=== PATIENT | female | born 1990 | race Caucasian/White ===

== ENCOUNTER 2023-01-04 12:18 | Inpatient (IN) ==
[2023-01-04] MEDS ORDERED: OXYTOCIN 30 UNITS/500 ML BAG IV PRN ×3 (12:24→23:23)
[2023-01-04] MEDS ORDERED: LIDOCAINE 1% LOCAL 20 ML VIAL INFIL PRN (12:24)
[2023-01-04] MEDS ORDERED: PENICILLIN G POTASSIUM 6 MU in DEXTROSE 5% 250 ML IV ONE (12:30)
[2023-01-04] MEDS ORDERED: BETAMETH SOD PHOS/ACETATE IA 6 MG/ML ONE (12:51)
[2023-01-04] MEDS ORDERED: BETAMETH SOD PHOS/ACETATE IA 6 MG/ML IM STA (12:51)
--- NOTE | 2023-01-04 12:58 | History & Physical Report ---
Date of Service January 04, 2023 Assessment & Plan (1) 36 weeks gestation of : (2) PROM (premature rupture of membranes): (3) Gestational diabetes: Plan admit, iv, labs. initial bp elevated, if remains elevated will need to draw additional labs. she did have normal bp in office within last 1-2hr. pitocin induction of labor. pcn for unknown gbs status. gbs obtained, send urine studies, check wbc, betamethasone rec due to ega. reviewed prom and rec to proceed with induction of labor and pt and partner agree. deny questions. fhts categ 1. History of Present Illness Chief Complaint: prom Primary Care Provider: NO PCP 32yo at 36 1/7 wks ega presents to L&D from office with gross rupture, without labor. Patient denies bleeding. Leaking began at 0630am. She was seen in office and gross srom. +FM. No ctx. Had prior 38wk . GDM this , controlled with diet. Unknown gbs status. PNC c/b GDM OBH: x 1 GY[facility]: nl paps, h/o CT--not recent. Allergies Allergy/AdvReac Type Severity Reaction Status Date / Time No Known Allergies Allergy Verified 01/04/23 11:55 Home Medications Medication Instructions Recorded Confirmed Type lactobacillus combination no.8 PO 04/04/20 01/04/23 History [Adult Probiotic] prenat.vits,bronson,[id number] 1 tab PO DAILY 04/02/22 01/04/23 History doxylamine succinate [Unisom PO 06/13/22 01/04/23 History (doxylamine)] acetone (urine) test (Ketone Urine #50 ea 07/09/22 01/04/23 Rx Test strips) blood sugar diagnostic (OneTouch #150 ea 07/09/22 01/04/23 Rx Verio test strips) blood-glucose meter (OneTouch #1 ea 07/09/22 01/04/23 Rx Verio Reflect Meter) lancets 33 gauge (OneTouch Delica #150 ea 07/09/22 01/04/23 Rx Lancets) breast pump #1 ea 11/26/22 01/04/23 Rx breast pump #1 ea 12/24/22 01/04/23 Rx Patient History Medical History (Updated 01/04/23 @ 12:56 by Mikala Santizo MD, FACOG) 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 Gestational diabetes History of anemia History of chicken pox Hx of ovarian cyst Surgical History S/P wisdom tooth extraction Family History (Updated 06/13/22 @ 13:07 by Rajni Osullivan) Father Hypertension Sister Twin Denies family history of Ovarian cancer Breast cancer Colorectal cancer Social History (Updated 06/13/22 @ 13:09 by Rajni Osullivan) Smoking Status: Never smoker marital status: marital status details: Chidi Marshall(32) [phone] Current Living Situation: Spouse and Family Current Living Situation Comment: lives with spouse, son, dog, cats-spouse changing litter current occupational status: employed current occupation: [employer] Review of Systems as per Subjective / HPI Physical Exam Constitutional: WD/WN, vitals as above Respiratory: normal respiratory effort, lungs clear to auscultation Cardiovascular: Rate/Rhythm: regular rate and regular rhythm Gastrointestinal (Abdomen): soft gravid nt efw 6-7# Musculoskeletal: no edema nontender calves Neurologic: grossly normal Psychiatric: A+Ox3, euthymic affect Genitourinary: Manual OB Exam: + cervical dilation 2 cm, + cervical effacement 60%, + station -2 and + amniotic fluid (gross srom, forebag arom) clear OB Exam Monitor Tracing: + external FHT monitor used, + external uterine monitor used (irreg), + category I and + normal FHT variability Results & Data Vital Signs (Past 12 Hours) Vital Signs Pulse BP 01/04/23 12:49 75 169/93 H 01/04/23 12:32 82 162/99 H Coding Level of Care Code None Diagnoses 36 weeks gestation of Z3A.36 PROM (premature rupture of membranes) O42.90 Gestational diabetes O24.419
[2023-01-04] MEDS: LACTATED RINGER'S 1,000 ML IV PRN ×2 (13:00→22:01)
[2023-01-04 13:06] LABS: Hematocrit (blood only) 36.5 % (37.0-47.0); Hemoglobin 12.6 g/dl (12.0-16.0); Mean Corpuscular Hemoglobin 30.8 pg (25.0-34.0); Mean Corpuscular Hgb Conc 34.5 g/dL (32.0-36.0); Mean Corpuscular Volume 89.2 fL (80.0-100.0); Mean Platelet Volume 10.5 fL (9.4-12.4); Platelet Count 221 K/uL (130-400); RDW Coefficient of Variation 12.4 % (11.5-14.5); RDW Standard Deviation 40.4 fL (36.4-46.3); Red Blood Count 4.09 M/uL (4.20-5.40); White Blood Count 11.95 K/ul (4.8-10.8)
[2023-01-04 13:18] LABS: Appearance Urine Clear (Clear); Bacteria Urine Automated Negative (Negative); Bilirubin Urine Negative (Negative); Blood Urine Negative (Negative); Color Urine Yellow; Epithelial Cell Urine Auto >30 /lpf (0-5); Glucose Urine UA Negative (Negative); Ketones Urine 1+ (Negative); Leukocyte Esterase Urine Negative (Negative); Nitrite Urine Negative (Negative); Protein Urine Trace (Negative); RBC Urine Automated 0-4 /hpf (0-4); Urobilinogen Urine Negative (Negative)
[2023-01-04] MEDS: PENICILLIN G POTASSIUM 3 MU in DEXTROSE 5% 100 ML IV PRN ×2 (17:33→22:26)
[2023-01-04 17:39] LABS: Albumin Level 3.4 gm/dl (3.4-5.0); BUN Creatinine Ratio 12.5 (10-20); Bilirubin,Total 0.4 mg/dl (0.2-1.0); Calcium 8.8 mg/dl (8.6-10.3); Creatinine Clr Calc Pharmacy 146.1 ml/min; Est GFR (African American) 138.8 ml/min; Est GFR (Non-African American) 119.7 ml/min; Globulin 3.3 gm/dl (2.5-4.0); Total Protein 6.7 gm/dl (6.0-8.3)
--- NOTE | 2023-01-04 18:44 | Labor Progress Brief Note ---
Date of Service January 04, 2023 Subjective ctx stronger, denies hung or visual change. aware of lab results and bp and dx gest htn Assessment & Plan (1) 36 weeks gestation of : (2) PROM (premature rupture of membranes): Plan: c/w pit to keep labor pattern. good cx change. (3) Gestational hypertension: Plan: urine prot/cr ratio pending. ua was only trace protein. dx reviewed with pt. Physical Exam Constitutional: WD/WN, vitals as above Genitourinary: Manual OB Exam: + cervical dilation 3 cm, + cervical effacement (75%) and + station -2 OB Exam Monitor Tracing: + external FHT monitor used, + external uterine monitor used (q3-3.5 pit at 7), + category I and + normal FHT variability Results & Data Vital Signs (Past 12 Hours) Vital Signs Temp Pulse Resp BP 01/04/23 13:11 98.2 F 72 18 156/84 H 01/04/23 18:33 71 01/04/23 18:33 150/86 H 01/04/23 18:19 65 01/04/23 18:19 154/86 H 01/04/23 18:08 79 01/04/23 18:08 160/82 H 01/04/23 17:48 70 01/04/23 17:48 150/86 H 01/04/23 17:33 66 01/04/23 17:33 144/86 H 01/04/23 16:34 98.8 F 01/04/23 14:30 18 01/04/23 14:30 98.2 F 18 01/04/23 14:30 98.2 F 01/04/23 17:18 86 01/04/23 17:18 152/93 H 01/04/23 17:04 74 01/04/23 17:04 147/88 H 01/04/23 16:49 73 01/04/23 16:49 150/80 H 01/04/23 16:34 75 01/04/23 16:34 166/96 H 01/04/23 16:19 69 01/04/23 16:19 162/95 H 01/04/23 16:04 73 01/04/23 16:04 148/75 H 01/04/23 15:48 71 01/04/23 15:48 148/81 H 01/04/23 15:34 71 01/04/23 15:34 147/77 H 01/04/23 15:19 67 01/04/23 15:19 172/85 H 01/04/23 15:04 75 01/04/23 15:04 140/73 01/04/23 14:48 71 01/04/23 14:48 155/86 H 01/04/23 14:33 75 01/04/23 14:33 156/95 H 01/04/23 14:18 73 01/04/23 14:18 160/95 H 01/04/23 14:04 75 01/04/23 14:04 167/92 H 01/04/23 13:49 77 01/04/23 13:49 171/106 H 01/04/23 13:33 72 01/04/23 13:33 156/84 H 01/04/23 13:20 73 01/04/23 13:20 151/92 H 01/04/23 13:04 79 131/87 01/04/23 12:49 75 169/93 H 01/04/23 12:32 98.2 F 82 162/99 H Coding Level of Care Code None Diagnoses 36 weeks gestation of Z3A.36 PROM (premature rupture of membranes) O42.90 Gestational hypertension O13.9
[2023-01-04 20:05] LABS: Creatinine Urine Random 120.1 mg/dl; Protein Creatinine Ratio Urine 0.2 (0-0.2)
[2023-01-04] MEDS ORDERED: fentaNYL citrate PF 100 MCG/2 ML VIAL ONE (22:36)
[2023-01-04] MEDS ORDERED: ePHEDrine sulfate 50 MG/ML AMP ONE (22:36)
[2023-01-04] MEDS ORDERED: LIDOCAINE 2%/EPINEPHRINE 1:200,000 20 ML PF ONE (22:37)
[2023-01-04] MEDS ORDERED: SODIUM CHLORIDE 0.9% PF INJ 10 ML VIAL ONE (22:37)
[2023-01-04] MEDS ORDERED: BUPIVACAINE 0.25% PF 30 ML VIAL ONE (22:37)
[2023-01-04] MEDS ORDERED: fentaNYL 2MCG/ML ROPIVACAINE 1.25MG/ML 100 ML BAG EPI ONE (22:37)
[2023-01-04] MEDS ORDERED: diphenhydrAMINE 50 MG/ML VIAL IV PRN (22:38)
[2023-01-04] MEDS ORDERED: NALOXONE HCL 1 MG in SODIUM CHLORIDE 0.9% 1000ML 1,000 ML IV PRN (22:38)
[2023-01-04] MEDS ORDERED: ONDANSETRON INJ 2 MG/ML 2 ML VIAL IV PRN (22:38)
[2023-01-04] MEDS ORDERED: NALOXONE HCL 0.4 MG/1 ML VIAL/CARP IV PRN (22:38)
[2023-01-04] MEDS ORDERED: fentaNYL 2MCG/ML ROPIVACAINE 1.25MG/ML 100 ML BAG EPI PRN (22:38)
[2023-01-04] MEDS ORDERED: NALBUPHINE HCL INJ 10 MG/ML AMP IV PRN (22:38)
[2023-01-04] MEDS ORDERED: ePHEDrine sulfate 50 MG/ML AMP IV PRN (22:38)
--- NOTE | 2023-01-04 22:39 | Anesthesiology Consultation ---
Date of Service January 04, 2023 Assessment & Plan (1) Encounter for pre-operative examination: Chart Review Chart Review: Patient NOT seen in Pre Admission Testing and Acceptable Risk for Labor Epidural Consults Requested none History Height/Weight Height: 5 ft 4 in Weight: 97.976 kg Allergies Allergy/AdvReac Type Severity Reaction Status Date / Time No Known Allergies Allergy Verified 01/04/23 11:55 Medications Home Medications Medication Instructions Recorded Confirmed Last Taken prenat.vits,bronson,kvl-rhta-rmina 1 tab PO DAILY 04/02/22 01/04/23 01/04/23 acetone (urine) test (Ketone Urine #50 ea 07/09/22 01/04/23 Unknown Test strips) blood sugar diagnostic (OneTouch #150 ea 07/09/22 01/04/23 Unknown Verio test strips) blood-glucose meter (OneTouch #1 ea 07/09/22 01/04/23 Unknown Verio Reflect Meter) lancets 33 gauge (OneTouch Delica #150 ea 07/09/22 01/04/23 Unknown Lancets) breast pump #1 ea 11/26/22 01/04/23 Unknown breast pump #1 ea 12/24/22 01/04/23 Unknown Active Medications Generic Name Dose Route Start Last Admin Trade Name Freq PRN Reason Stop Dose Admin Penicillin G Potassium 3 mu/ 106 mls @ 100 mls/hr 01/04/23 16:30 01/04/23 22:26 Dextrose IV 01/14/23 16:29 100 mls/hr Q4H PRN Administration GBS(+) Until Delivery Lactated Ringer's 1,000 mls @ 125 mls/hr 01/04/23 12:24 01/04/23 22:31 Lr IV 01/06/23 12:23 125 mls/hr .Q8H PRN Infusion L&D Protocol Protocol Oxytocin 30 units in 500 mls @ 17 mls/hr 01/04/23 12:24 01/04/23 21:15 Pitocin IV 02/03/23 12:23 1.02 units/hr .Q24H PRN 17 mls/hr Labor Induction/Augmentation Titration Protocol 1.02 UNITS/HR Past Medical History Medical History 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 Gestational diabetes History of anemia History of chicken pox Hx of ovarian cyst Exercise / Class Metabolic Activity II 4-5 Yardwork/Stairs/Walk up hill Past Family History Family History Father Hypertension Sister Twin Denies family history of Ovarian cancer Breast cancer Colorectal cancer Past Surgical History Surgical History S/P wisdom tooth extraction Past Anesthesia History No Hx of Anesthesia Complications, No Family Hx of Anesthesia Complications and Other Social History Smoking Status: Never smoker Do You Dip or Chew Tobacco: No Hx Alcohol Use: No Hx Substance Use: No Physical Exam Vital Signs Last Vital Signs Temp 36.6 C 01/04/23 21:08 Pulse 63 01/04/23 22:34 Resp 18 01/04/23 21:08 BP 151/69 H 01/04/23 22:34 Testing Laboratory Results 01/04/23 12:37 01/04/23 17:11 Urine Color Yellow 01/04/23 12:35 Urine Appearance Clear (Clear) 01/04/23 12:35 Urine pH 6.0 (4.5-7.5) 01/04/23 12:35 Ur Specific [place] 1.020 (1.000-1.030) 01/04/23 12:35 Urine Protein Trace (Negative) H 01/04/23 12:35 Urine Glucose (UA) Negative (Negative) 01/04/23 12:35 Urine Ketones 1+ (Negative) H 01/04/23 12:35 Urine Nitrite Negative (Negative) 01/04/23 12:35 Ur Leukocyte Esterase Negative (Negative) 01/04/23 12:35 Urine WBC (Auto) 1-5 /hpf (0-5) 01/04/23 12:35 Urine RBC (Auto) 0-4 /hpf (0-4) 01/04/23 12:35 U Hyaline Cast (Auto) 1-5 /lpf (0-5) 01/04/23 12:35 U Epithel Cells (Auto) >30 /lpf (0-5) H 01/04/23 12:35 Urine Bacteria (Auto) Negative (Negative) 01/04/23 12:35 Blood Type O Positive 01/04/23 12:37 Antibody Screen NEGATIVE 01/04/23 12:37 01/04/23 14:32 POC Glucose 98
--- NOTE | 2023-01-04 23:04 | Delivery Summary ---
Vaginal Delivery Summary Date of Service January 04, 2023 Vaginal Delivery Summary The patient dilated to complete and pushed to deliver a viable male Apgars 9 and 9 via over intact perineum. Mouth and nose bulb suctioned at perineum. Loose nuchal x 1 reduced. Shoulders and body delivered with ease. was vigorous and crying at . Cord clamped at 30 seconds of life and to maternal abdomen where the cord was then doubly clamped and cut. Placenta delivered spontaneously and intact, three-vessel cord. Hemostasis achieved with dilute pitocin and uterine massage. Cervix and sulci intact. EBL 300 cc. Mother and baby stable in recovery. [facility] Vaginal Delivery Charge Delivery Type Details:
[2023-01-04] MEDS ORDERED: ACETAMINOPHEN 325 MG TAB PO PRN (23:23)
[2023-01-04] MEDS ORDERED: IBUPROFEN 600 MG TAB PO PRN (23:23)
[2023-01-04] MEDS ORDERED: HYDROCORTISONE ACETATE 25 MG SUPP PR PRN (23:23)
[2023-01-04] MEDS ORDERED: BENZOCAINE 20% AER SPR 82.5 GM CAN EXT PRN (23:23)
[2023-01-04] MEDS ORDERED: oxyCODONE/ACETAMINOPHEN 5mg/325mg TAB PO PRN (23:23)
[2023-01-04] MEDS ORDERED: OXYTOCIN 20 UNITS in LACTATED RINGER'S 1,000 ML IV SCH (23:23)
[2023-01-04] MEDS ORDERED: DIPHTHERIA/TETANUS/PERTUSSIS 0.5mL SYR/VIAL (Age 7+yrs) IM ONE (23:23)
--- NOTE | 2023-01-05 06:10 | Obstetrical Progress Note ---
Date of Service January 05, 2023 Assessment & Plan (1) Status post vaginal delivery: Feels well today. Eating well, voiding well, ambulating well. - Routine care -- OOB, ambulation, diet progression as tolerated - After discharge will have 6 week follow-up Subjective Chiara is a 32 y/o female who is now PPD # 1 following vaginal delivery at 36 1/7 weeks. Reports feeling well overall this morning. _ abdominal cramping & _/10 pain well managed on analgesics. Voiding _. Tolerating meals overnight and able to ambulate some. _ passing gas and _ bowel movements. Some persistent lochia with some improvement this morning. Breast/Bottle feeding. Review of Systems Denies fever, chills, sweats Denies shortness of breath, difficulty breathing, chest pain, palpitations, chest pressure. Denies breast pain. Denies dysuria. Denies headache or changes in vision. Physical Exam General: Alert, oriented. No acute distress. Cardiac: Regular rate and rhythm, no murmurs/rubs/gallops. Respiratory: Clear to auscultation bilaterally a/p, no wheezes/rales/rhonchi. No increased work of breathing. Symmetrical chest rise. No respiratory distress. Abdomen: Soft, nontender, nondistended. Bowel sounds present. Uterus: Uterine fundus firm, palpable _ cm below umbilicus. Lower Extremities: No lower extremity edema or swelling. No deep calf pain. Molina's negative bilaterally. Results & Data Vital Signs (Past 12 Hours) Vital Signs Temp Pulse Pulse Resp BP BP Pulse Ox 01/05/23 03:20 36.7 C 79 18 138/87 99 01/05/23 01:30 36.6 C 78 18 146/91 H 98 01/05/23 01:00 16 01/05/23 00:30 16 01/05/23 00:00 18 01/04/23 23:45 16 01/04/23 23:30 16 01/04/23 23:15 16 01/04/23 23:00 36.6 C 16 01/05/23 00:48 85 145/81 H 01/05/23 00:34 69 143/80 H 01/05/23 00:19 84 138/80 01/04/23 23:49 82 01/04/23 23:49 153/67 H 01/04/23 23:33 69 01/04/23 23:33 168/90 H 01/04/23 23:19 81 01/04/23 23:19 166/90 H 01/04/23 23:03 77 01/04/23 23:03 172/77 H 01/04/23 22:54 81 01/04/23 22:54 172/72 H 01/04/23 22:49 105 H 01/04/23 22:49 183/105 H 01/04/23 22:34 63 01/04/23 22:34 151/69 H 01/04/23 22:27 68 01/04/23 22:27 171/73 H 01/04/23 22:19 68 01/04/23 22:19 184/84 H 01/04/23 22:05 74 01/04/23 22:05 166/93 H 01/04/23 21:50 66 01/04/23 21:50 157/88 H 01/04/23 21:33 85 01/04/23 21:33 143/85 H 01/04/23 21:19 93 H 01/04/23 21:19 139/90 01/04/23 21:08 18 01/04/23 21:08 36.6 C 18 01/04/23 20:48 65 01/04/23 20:48 166/89 H 01/04/23 20:34 70 01/04/23 20:34 154/86 H 01/04/23 20:18 72 01/04/23 20:18 151/86 H 01/04/23 20:03 83 01/04/23 20:03 149/70 H 01/04/23 19:48 68 01/04/23 19:48 150/84 H 01/04/23 19:33 72 01/04/23 19:33 146/82 H 01/04/23 19:05 16 01/04/23 19:05 36.6 C 16 01/04/23 19:18 72 01/04/23 19:18 148/86 H 01/04/23 19:04 66 01/04/23 19:04 154/89 H 01/04/23 18:49 69 01/04/23 18:49 151/85 H 01/04/23 18:41 63 01/04/23 18:41 166/92 H 03/31/23 18:33 71 01/04/23 18:33 150/86 H 01/04/23 18:19 65 01/04/23 18:19 154/86 H O2 Del Method 01/05/23 03:20 Room Air 01/05/23 01:30 Room Air 01/05/23 01:00 01/05/23 00:30 01/05/23 00:00 01/04/23 23:45 01/04/23 23:30 01/04/23 23:15 01/04/23 23:00 01/05/23 00:48 01/05/23 00:34 01/05/23 00:19 01/04/23 23:49 01/04/23 23:49 01/04/23 23:33 01/04/23 23:33 01/04/23 23:19 01/04/23 23:19 01/04/23 23:03 01/04/23 23:03 01/04/23 22:54 01/04/23 22:54 01/04/23 22:49 01/04/23 22:49 01/04/23 22:34 01/04/23 22:34 01/04/23 22:27 01/04/23 22:27 01/04/23 22:19 01/04/23 22:19 01/04/23 22:05 01/04/23 22:05 01/04/23 21:50 01/04/23 21:50 01/04/23 21:33 01/04/23 21:33 01/04/23 21:19 01/04/23 21:19 01/04/23 21:08 01/04/23 21:08 01/04/23 20:48 01/04/23 20:48 01/04/23 20:34 01/04/23 20:34 01/04/23 20:18 01/04/23 20:18 01/04/23 20:03 01/04/23 20:03 01/04/23 19:48 01/04/23 19:48 01/04/23 19:33 01/04/23 19:33 01/04/23 19:05 01/04/23 19:05 01/04/23 19:18 01/04/23 19:18 01/04/23 19:04 01/04/23 19:04 01/04/23 18:49 01/04/23 18:49 01/04/23 18:41 01/04/23 18:41 01/04/23 18:33 01/04/23 18:33 01/04/23 18:19 01/04/23 18:19 Resident Activity Tracking Resident Involvement: Resident Care Provided Care Provided: OB Delivery
--- NOTE | 2023-01-05 06:47 | Obstetrical Progress Note ---
Date of Service January 05, 2023 Assessment & Plan (1) Gestational hypertension: (2) Status post vaginal delivery: Plan stable, routine care. rh pos, breast, ri. cbc pending. bps ok so far, monitor. Day #:: 1 Subjective Ambulation: ambulating normally Diet Tolerance:: regular diet Lochia:: Small Feeding Type:: breast feeding baby in nursery due to blood sugars. pt feels well. no bp issues. no hung or visual change Constitutional: + as per Subjective / HPI Physical Exam Constitutional WD/WN, vitals as above Respiratory normal respiratory effort, lungs clear to auscultation Cardiovascular Rate/Rhythm: regular rate and regular rhythm Gastrointestinal (Abdomen) Inspection/Auscultation: abdomen normal to inspection Percussion/Palpation: abdomen soft Fundus firm 3cm down Musculoskeletal nt calves, tr edema Neurologic grossly normal Psychiatric A+Ox3, euthymic affect Results & Data Vital Signs (Past 12 Hours) Vital Signs Temp Pulse Pulse Resp BP BP Pulse Ox 01/05/23 03:20 98.1 F 79 18 138/87 99 01/05/23 01:30 97.9 F 78 18 146/91 H 98 01/05/23 01:00 16 01/05/23 00:30 16 01/05/23 00:00 18 01/04/23 23:45 16 01/04/23 23:30 16 01/04/23 23:15 16 01/04/23 23:00 97.9 F 16 01/05/23 00:48 85 145/81 H 01/05/23 00:34 69 143/80 H 01/05/23 00:19 84 138/80 01/04/23 23:49 82 01/04/23 23:49 153/67 H 01/04/23 23:33 69 01/04/23 23:33 168/90 H 01/04/23 23:19 81 01/04/23 23:19 166/90 H 01/04/23 23:03 77 01/04/23 23:03 172/77 H 01/04/23 22:54 81 01/04/23 22:54 172/72 H 01/04/23 22:49 105 H 01/04/23 22:49 183/105 H 01/04/23 22:34 63 01/04/23 22:34 151/69 H 01/04/23 22:27 68 01/04/23 22:27 171/73 H 01/04/23 22:19 68 01/04/23 22:19 184/84 H 01/04/23 22:05 74 01/04/23 22:05 166/93 H 01/04/23 21:50 66 01/04/23 21:50 157/88 H 01/04/23 21:33 85 01/04/23 21:33 143/85 H 01/04/23 21:19 93 H 01/04/23 21:19 139/90 01/04/23 21:08 18 01/04/23 21:08 97.9 F 18 01/04/23 20:48 65 01/04/23 20:48 166/89 H 01/04/23 20:34 70 01/04/23 20:34 154/86 H 01/04/23 20:18 72 01/04/23 20:18 151/86 H 01/04/23 20:03 83 01/04/23 20:03 149/70 H 01/04/23 19:48 68 01/04/23 19:48 150/84 H 01/04/23 19:33 72 01/04/23 19:33 146/82 H 01/04/23 19:05 16 01/04/23 19:05 97.9 F 16 01/04/23 19:18 72 01/04/23 19:18 148/86 H 01/04/23 19:04 66 01/04/23 19:04 154/89 H 01/04/23 18:49 69 01/04/23 18:49 151/85 H O2 Del Method 01/05/23 03:20 Room Air 01/05/23 01:30 Room Air 01/05/23 01:00 01/05/23 00:30 01/05/23 00:00 01/04/23 23:45 01/04/23 23:30 01/04/23 23:15 01/04/23 23:00 01/05/23 00:48 01/05/23 00:34 01/05/23 00:19 01/04/23 23:49 01/04/23 23:49 01/04/23 23:33 01/04/23 23:33 01/04/23 23:19 01/04/23 23:19 01/04/23 23:03 01/04/23 23:03 01/04/23 22:54 01/04/23 22:54 01/04/23 22:49 01/04/23 22:49 01/04/23 22:34 01/04/23 22:34 01/04/23 22:27 01/04/23 22:27 01/04/23 22:19 01/04/23 22:19 01/04/23 22:05 01/04/23 22:05 01/04/23 21:50 01/04/23 21:50 01/04/23 21:33 01/04/23 21:33 01/04/23 21:19 01/04/23 21:19 01/04/23 21:08 01/04/23 21:08 01/04/23 20:48 01/04/23 20:48 01/04/23 20:34 01/04/23 20:34 01/04/23 20:18 01/04/23 20:18 01/04/23 20:03 01/04/23 20:03 01/04/23 19:48 01/04/23 19:48 01/04/23 19:33 01/04/23 19:33 01/04/23 19:05 01/04/23 19:05 01/04/23 19:18 01/04/23 19:18 01/04/23 19:04 01/04/23 19:04 01/04/23 18:49 01/04/23 18:49
[2023-01-05 08:06] LABS: Hematocrit (blood only) 34.2 % (37.0-47.0); Hemoglobin 11.8 g/dl (12.0-16.0); Mean Corpuscular Hemoglobin 31.1 pg (25.0-34.0); Mean Corpuscular Hgb Conc 34.5 g/dL (32.0-36.0); Mean Corpuscular Volume 90.2 fL (80.0-100.0); Mean Platelet Volume 10.9 fL (9.4-12.4); Platelet Count 258 K/uL (130-400); RDW Coefficient of Variation 12.6 % (11.5-14.5); RDW Standard Deviation 40.6 fL (36.4-46.3); Red Blood Count 3.79 M/uL (4.20-5.40); White Blood Count 19.63 K/ul (4.8-10.8)
[2023-01-05] MEDS: DOCUSATE SODIUM 100 MG CAP PO SCH ×2 (08:22→21:50)
[2023-01-05] MEDS: PRENATAL VITAMIN 1 TAB PO SCH (08:22)
[2023-01-05] MEDS ORDERED: INFLUENZA VIRUS QUAD VACCINE 0.5 ML SYR IM ONE (09:00)
[2023-01-06] MEDS: DOCUSATE SODIUM 100 MG CAP PO SCH ×2 (07:47→22:24)
[2023-01-06] MEDS: PRENATAL VITAMIN 1 TAB PO SCH (07:47)
[2023-01-06 08:36] LABS: Hematocrit (blood only) 35.4 % (37.0-47.0); Mean Corpuscular Hgb Conc 33.9 g/dL (32.0-36.0); Mean Corpuscular Volume 91.5 fL (80.0-100.0); Mean Platelet Volume 10.2 fL (9.4-12.4); Platelet Count 240 K/uL (130-400); RDW Standard Deviation 41.6 fL (36.4-46.3); Red Blood Count 3.87 M/uL (4.20-5.40); White Blood Count 12.27 K/ul (4.8-10.8)
--- NOTE | 2023-01-06 08:44 | Obstetrical Progress Note ---
Date of Service January 06, 2023 Assessment & Plan (1) Gestational hypertension: day 2 status post vaginal delivery. Patient's blood pressures been mildly elevated since delivery. Preeclampsia labs normal.. Patient denies preeclampsia symptoms. Started labetalol 200 mg b.i.d.. Will continue to monitor. (2) Status post vaginal delivery: Plan stable, routine care. rh pos, breast, ri. cbc pending. bps ok so far, monitor. Subjective Ambulation: ambulating normally Voiding: no voiding problems Passing Gas:: Yes Diet Tolerance:: regular diet Lochia:: Moderate Feeding Type:: breast feeding denies preeclampsia symptoms Physical Exam Constitutional WD/WN, vitals as above Respiratory normal respiratory effort; no respiratory distress and no labored breathing Cardiovascular no calf tenderness pain Gastrointestinal (Abdomen) Inspection/Auscultation: abdomen normal to inspection; abdomen not distended Percussion/Palpation: abdomen soft; abdomen nontender, no guarding and abdomen not rigid Genitourinary OB Exam Abdomen: + fundal height Fundus: + firm and + relation to umbilicus (Below); not tender or not boggy Results & Data Vital Signs (Past 12 Hours) Vital Signs Temp Pulse Resp BP Pulse Ox O2 Del Method 01/06/23 04:30 36.8 C 83 18 146/87 H 97 Room Air 01/05/23 21:30 Room Air 01/05/23 21:30 36.6 C 67 18 148/78 H 98 Room Air
[2023-01-06] MEDS: LABETALOL HCL 200 MG TAB PO SCH ×2 (08:50→22:25)
[2023-01-06 08:53] LABS: Creatinine Clr Calc Pharmacy 131.7 ml/min; Est GFR (African American) 132.5 ml/min; Est GFR (Non-African American) 114.3 ml/min
[2023-01-06] MEDS ORDERED: bisacodyL 10 MG SUPP PR PRN (23:23)
--- NOTE | 2023-01-07 06:53 | Obstetrical Progress Note ---
Date of Service January 07, 2023 Assessment & Plan (1) Encounter for care and examination after delivery: (2) Gestational hypertension: Plan - Overall, feeling well and eating well today - Infant feeding going well without concern - Urinating and passing gas appropriately - Ambulating well in room - Pain controlled w/ Ibuprofen - Hgb 12.0 on 01/06 - Gestational HTN: managed with Labetalol 200 mg PO BID, currently 130s/80s, pre-eclampsia labs unremarkable, asymptomatic - Anticipate BP followup 1 week PP - Vitals stable and wnl - Routine PP care progressing well - Anticipate discharge @ 48-72 hours PP - Recommending f/u outpatient in 6 weeks Admission and Anticipated Discharge Date Admission Date: January 04, 2023 Supervising Physician Co-Signing Physician Notes patient seen and evaluated with resident and agree with the above findings and plan. Continue routine care. Denying preeclampsia symptoms. Will monitor blood pressures the a.m. with discharge to [facility] this afternoon Subjective Patient is a 32F who is PPD #3 following delivery at 36 1/7. She reports feeling well overall this morning. - Ambulation - well throughout room - Voiding/Dumas - independent voids, no dysuria or pressure - Gas/Stool - passing gas, no bowel movement - Diet - regular, no nausea or emesis - Lochia - diminishing, light amount - Feeding Type - breast feeding/pumping (working on latch) - Pain Level - 0/10, controlled with Ibuprofen Review of Systems - Denies fever, chills, sweats - Denies shortness of breath, difficulty breathing, chest pain, palpitations, chest pressure. - Denies breast pain. - Denies dysuria. - Denies headache or changes in vision. Physical Exam Physical Exam: General: Alert, oriented. No acute distress. Cardiac: RRR, normal S1/S2, no murmurs/rubs/gallops. Respiratory: Non-labored, CTAB, no wheezes/rales/rhonchi. Symmetric chest rise. Abdomen: Soft, nontender, nondistended. Bowel sounds present. Uterus: Uterine fundus firm, palpable 2 cm below umbilicus. Lower Extremities: 2+lower extremity edema or swelling. No deep calf pain. Molina's negative bilaterally. Results & Data Vital Signs (Past 12 Hours) Vital Signs Temp Pulse Pulse Resp BP BP Pulse Ox 01/07/23 03:40 81 134/83 98 01/07/23 00:15 36.7 C 83 18 136/85 98 01/06/23 23:00 157/107 H 01/06/23 22:26 164/115 H O2 Del Method 01/07/23 03:40 Room Air 01/07/23 00:15 Room Air 01/06/23 23:00 01/06/23 22:26 Resident Activity Tracking Resident Involvement: Resident Care Provided Care Provided: OB Delivery
[2023-01-07] MEDS: DOCUSATE SODIUM 100 MG CAP PO SCH (07:59)
[2023-01-07] MEDS: PRENATAL VITAMIN 1 TAB PO SCH (07:59)
[2023-01-07] MEDS: LABETALOL HCL 200 MG TAB PO SCH ×2 (08:00→15:54)
== END 2023-01-07 16:40 | disposition home or self-care (01) | DRG 807 ==
LOC: OPB 12:18 → 4S1 12:19 → 4E2 01-05 02:25